=== PATIENT | male | born 1970 | race Caucasian/White ===

== ENCOUNTER 2017-01-20 18:24 | Emergency (ER) | payer OTHER ==
[2017-01-20 18:37] VITALS: BP 136/80
--- NOTE | 2017-01-20 19:13 | ERNOTE ---
Lower Extremity HPI - Narrative Date of Service: 01/21/17 - General Lower Extremities Pain: foot: left - BETWEEN HIS TOES Time Seen by Provider: 01/20/17 18:42 Source: patient Exam Limitations: no limitations - Immun/Allergies/Home Medications Immunizations: IMMUNIZATION HX Immunizations Up to Date Yes Allergies/Adverse Reactions: Allergies Allergy/AdvReac Type Severity Reaction Status Date / Time No Known Allergies Allergy Unverified 01/20/17 18:37 Home Medications: HOME MEDICATIONS Nystatin 1 each MC TID #1 powder.ea. 01/20/17 [Last Taken Unknown] - History of Present Illness Narrative: PATIENT HAS A FUNGAL INFECTION BETWEEN HIS TOES ON HIS LEFT FOOT. Date (Duration): 01/21/17 Occurred: other - FOR THE LAST 3 WEEKS Location of Incident: home Method of Injury: Reports: no apparent injury Associated Symptoms: Reports: none Other Injuries: Reports: none Subsequent Symptoms: Denies: sensory loss, numbness, motor loss Review of Systems - Review of Systems Constitutional: Present: no symptoms reported EYE: Present: no symptoms reported ENT: Present: no symptoms reported Respiratory: Present: no symptoms reported Cardiology: Present: no symptoms reported Gastrointestinal/Abdominal: Present: no symptoms reported Genitourinary: Present: no symptoms reported Musculoskeletal: Present: no symptoms reported Skin: Present: See HPI - RED AND ITCHING, change in color Endocrine: Present: no symptoms reported Hematologic/Lymphatic: Present: no symptoms reported Psych: Present: no symptoms reported All Other Systems: All systems neg except as marked - Patient's Past Medical History Patient History - Medical: Chronic Pain Patient History - Cancer: No Hx of Cancer Patient History - Other: None - Social History Living Situations: home Psych History: No pertinent hx Smoking Status: Current every day smoker Patient requests Smoking Cessation Consult: No Initiate information on Smoking Cessation: No Alcohol Use: none Drug Use: none - Immunizations Immunizations Up to Date: Yes Physical Exam - Physical Exam Narrative: PATIENTS LEFT FOOT HAS A RED RASH IN BETWEEN HIS TOES THAT GOES ALONG WITH A FUNGAL INFECTION. SKIN IS RED WITH CRACKING AND ERYTHEMA. PATIENT DID NOT WANT ME TO LOOK AT HIS RIGHT FOOT HE STATED IT WAS FINE. General Appearance: Present: wd/wn, alert, no apparent distress Eye Exam: Normal inspection: bilateral Ears, Nose, Throat: Present: normal ENT inspection, normal pharynx Neck: Present: normal inspection, nontender Respiratory: Present: no respiratory distress, normal breath sounds, no accessory muscle use, chest nontender, lungs clear Cardiovascular/Chest: Present: regular rate, rhythm, no murmur, normal peripheral pulses Peripheral Pulses: N=norm/S=strong/W=weak/B=bound/A=absent: Dorsalis-pedis (R): Normal, Dorsalis-pedis (L): Normal Gastrointestinal/Abdominal: Present: normal bowel sounds, nontender, nondistended, soft, no organomegaly Back Exam: Present: normal inspection, normal range of motion, no vertebral tenderness Extremity Exam: Present: normal inspection, normal range of motion, no edema Neurological Exam: Present: alert, oriented, normal mood/affect, no motor/ sensory deficits Skin Exam: Present: normal color, warm/dry, skin rash - LEFT FOOT ONLY Lymphatic Exam: Present: no adenopathy ED Progress - Vital Signs Patient's Vital Signs:: I have reviewed the patient's vital signs. Vital Signs: Vital Signs 01/20/17 18:30 Temperature 37 C Pulse Rate 93 Respiratory 20 Rate Blood Pressure 136/80 O2 Sat by Pulse 98 Oximetry - Progress/Reassessment Chief Complaint: Lower Extremity Pain/ Injury Progress:: Improved Departure Clinical Impression: Athlete's foot on left - Departure Disposition: Home self-care Condition: Stable Instructions: Athlete's Foot, [id number] Additional Instructions: Continue any previous home medications as directed. Follow-up with her primary care provider. He has been given a list to choose from. Return to the emergency rooms if symptoms become worse. Try to remember to keep feet clean and dry. Prescriptions: Nystatin 1 each MC TID #1 powder.
== END 2017-01-20 19:18 | disposition home or self-care (01) ==
LOC: ER 18:24
DX: B35.3 Tinea pedis (principal)

== ENCOUNTER 2017-01-21 23:29 | Emergency (ER) | payer OTHER ==
[2017-01-21 23:40] VITALS: BP 122/81
--- NOTE | 2017-01-22 00:11 | ERNOTE ---
ER Male HPI Date of Service: 01/22/17 Stated Complaint: GROIN PAIN Time Seen by Provider: 01/22/17 00:01 Source: patient Exam Limitations: no limitations Immunizations: IMMUNIZATION HX Immunizations Up to Date Yes History of Influenza Vaccine No Hx Pneumococcal Vaccination No Allergies/Adverse Reactions: Allergies No Known Allergies Allergy (Verified 01/21/17 23:39) Home Medications: HOME MEDICATIONS NK [No Home Medication] 01/21/17 [Last Taken Unknown] - History of Present Illness Narrative: Patient has noted right inguinal discomfort for last 6 weeks. After activity or work is worse. Has noted a buldge but has not been consistent. Denies any urinary or stool changes. Onset Location: Present: RLQ Review of Systems - Review of Systems Constitutional: Present: no symptoms reported Respiratory: Present: no symptoms reported Cardiology: Present: no symptoms reported Gastrointestinal/Abdominal: Present: constipation Genitourinary: Present: no symptoms reported Musculoskeletal: Present: no symptoms reported - Patient's Past Medical History Patient History - Medical: Chronic Pain Patient History - Cardiac/Respiratory: No pertinent hx Patient History - Cancer: No Hx of Cancer Patient History - Surgical Procedures: Hernia Repair Patient History - Other: None - Social History Living Situations: home Psych History: No pertinent hx Smoking Status: Current every day smoker Alcohol Use: rarely Drug Use: none - Immunizations Immunizations Up to Date: Yes Hx Pneumococcal Vaccination: No History of Influenza Vaccine: No Physical Exam - Physical Exam General Appearance: Present: wd/wn, alert, no apparent distress Gastrointestinal/Abdominal: Present: nontender, soft, hernia - Right inguinal hernia easily reducible in upright position. Male Genitals Exam: Present: normal genitalia ED Progress - Vital Signs Vital Signs: Vital Signs 01/21/17 23:32 Temperature 36.2 C L Pulse Rate 95 Respiratory 18 Rate Blood Pressure 122/81 O2 Sat by Pulse 97 Oximetry - Progress/Reassessment Chief Complaint: Genitourinary Problem Plan - Plan Plan: See PCP for surgical referral No lifting or straining. Use tylenol/ibuprofen for discomfort Departure Clinical Impression: Right inguinal hernia - Departure Disposition: Home self-care Condition: Good Instructions: Inguinal Hernia, Adult, [id number] Additional Instructions: Refrain from lifting and straining Use tylenol alternating with ibuprofen for pain See PCP for surgical referral
== END 2017-01-22 00:19 | disposition home or self-care (01) ==
LOC: ER 23:29
DX: K40.90 Unilateral inguinal hernia, without obstruction or gangrene, not specified as recurrent (principal); F17.200 Nicotine dependence, unspecified, uncomplicated

== ENCOUNTER 2017-03-05 11:28 | Day surgery (SDC) | payer OTHER ==
[~2017-03-05 11:28] MED LIST: RINGERS SOLUTION,LACTATED 1,000 ML IV PRN
[2017-03-05] MEDS ORDERED: ceFAZolin SODIUM 1 GM VIAL IV ONE (12:55)
[2017-03-05] MEDS ORDERED: BUPIVACAINE HCL/EPINEPHRINE 50 ML VIAL IJ ONE ×2 (13:10)
[2017-03-05] MEDS ORDERED: RINGERS SOLUTION,LACTATED 1,000 ML IV ONE ×2 (14:10)
[2017-03-05] MEDS ORDERED: RINGERS SOLUTION,LACTATED 1,000 ML IV PRN (15:02)
[2017-03-05] MEDS ORDERED: oxyCODONE HCL/ACETAMINOPHEN 1 TAB TABLET PO ONE ×2 (15:02→16:30)
[2017-03-05 17:45] VITALS: BP 127/84
--- NOTE | 2017-03-05 19:00 | OR ---
Operative Report - Dictated Report Narrative: Date of operation: 03/05/2017 Preoperative diagnosis: Right inguinal hernia Postoperative diagnosis: Large indirect right inguinal hernia Operation: Repair of right inguinal hernia using Bard mesh plug and patch Surgeon: FRANKI Salgado MD Anesthesia: Gen. LMA Puneet Levi CRNA Indications for procedure: The patient is a 46-year-old male referred by A Maritza SUAREZ. The patient was seen in the emergency room on 01/22/2017 with a six -week history of right groin bulge. He was advised to establish with a PCP and saw A Maritza MIRANDAP, who referred him here. He has no attendant pulmonary, gastrointestinal, or genitourinary problems. Findings: Large indirect right inguinal hernia Narrative of procedure: The patient was identified preoperatively, the surgical site was marked, and prior to the administration of anesthetic a multidisciplinary timeout was observed. The patient was placed supine, SCDs were applied, and 2 g of intravenous Ancef administered. Gen. LMA anesthetic was administered. The patient's abdomen and genitalia were prepped with Betadine solution and the right groin isolated with 4 sterile towels. The remainder of the patient was covered with a sterile disposable drape. A transverse skin incision was made over the midportion of the right inguinal canal. Dissection was carried through subcutaneous tissue with electrocautery until the fascia of the external oblique aponeurosis was encountered. This was incised in the direction of its fibers down to and including the external inguinal ring. The ilioinguinal nerve was identified and protected throughout the procedure. Cord structures were encircled at the pubic tubercle, and a Zenaida drain placed for traction. Inspection of the inguinal floor revealed it to be sound out to the inferior epigastric vessels. Inspection of the cord revealed a large indirect hernia sac. A readily identifiable portion of the sac was dissected free from cord structures and opened. A forefinger was then inserted and the sac gradually dissected free from the cord structures back to the internal inguinal ring were properitoneal fat was identified. The neck of the sac was twisted and transfixed with a suture ligature of 0 Ethibond. Excess sac was amputated. The neck of the sac was then redirected medially using the same suture of 0 Ethibond. A small amount of herniated properitoneal fat medial to the cord was developed and reduced. A Bard mesh plug was placed in the inguinal floor adjacent to the cord. A suture of 0 Ethibond was placed between the conjoined tendon and shelving border of the inguinal ligament to incorporate the lateral leaves of the plug and form a new internal inguinal ring. The remainder of the plug was secured circumferentially along the conjoined tendon, and along the shelving border of the inguinal ligament with interrupted sutures of 0 Ethibond. A tailored mesh patch was placed in the inguinal floor and secured circumferentially to the pubic tubercle, along the conjoined tendon, and along the shelving border of the inguinal ligament with interrupted sutures of 0 Ethibond. The wings of the patch were wrapped around the cord structures and secured laterally with additional interrupted sutures of 0 Ethibond. The new internal inguinal ring was found to be of sufficient caliber to admit cord structures without undue constriction. The wound was inspected for hemostasis, which appeared complete. The cord structures and ilioinguinal nerve were returned to an anatomic position. After receiving a correct sponge needle and instrument count attention was turned to closing the wound. The external oblique aponeurosis was approximated with a running suture of 2-0 Vicryl. Subcutaneous tissues were approximated with interrupted sutures of 2-0 chromic. The skin was secured with a running subcuticular suture of 4-0 Vicryl. The operative site was washed and dried. A dressing of Dermabond, folded 4 x 4, and Medipore tape was applied. The scrotum was checked to ensure that the testicles were in anatomic position. The operative procedure was terminated at this point. The patient tolerated the anesthetic and procedure well without complication. There was no measurable blood loss. No specimen was submitted due to the benign gross appearance of the hernia sac removed. 0.5 % Marcaine with epinephrine was used for local anesthetic infiltration. The patient was transferred to the recovery room awake, extubated, and in stable condition. The patient remained stable throughout a period of postoperative observation. He was able to tolerate PO intake. He pain was controlled with po Percocet. He was able to ambulate without assistance. The dressing remained dry. He was discharged home with instructions not to lift and not to drive. He is to keep the current dressing dry and intact for 48 hours, but then may shower and change the dressing daily or as needed. The patient was given a prescription for Dilaudid 2 mg #30 1 po Q 4-6hrs prn pain. The patient has phone numbers to call for questions or prn signs of wound infection or hematoma. A return office appointment was made for 1 week. Reviewed N electronically signed
== END 2017-03-05 11:29 | disposition home or self-care (01) ==
LOC: AMB 11:28
PROVIDERS: ATTEND Surgery
PROC: 0YU50JZ Supplement Right Inguinal Region with Synthetic Substitute, Open Approach (ICD-10-PCS; principal; 2017-03-05 12:30)
DX: K40.90 Unilateral inguinal hernia, without obstruction or gangrene, not specified as recurrent (principal); F17.200 Nicotine dependence, unspecified, uncomplicated; Z68.26 Body mass index [BMI] 26.0-26.9, adult